=== PATIENT | male | born 1935 | race Caucasian/White ===

== ENCOUNTER 2018-04-24 10:53 | Day surgery (SDC) | payer OTHER ==
[2018-04-21 10:09] LABS: Absolute Monocytes 0.6 K/uL (0.1-1.3); Absolute Neutrophil 2.9 K/uL (1.8-8.0); Basophils % 1.2 % (0-1.3); Eosinophils % 9.4 % (0-4.4); Hematocrit 35.4 % (39.6-49.0); Lymphocytes % 32.5 % (15.3-44.8); MCV 95.3 fL (80-100); MPV 9.1 fL (7.6-11.3); RBC Red Blood Cell Count 3.71 M/uL (4.33-5.43)
--- OUTSIDE RECORDS SUMMARY | 2018-04-24 10:55 | XMS REPORT ---
:1935 [facility] [address] [place] [address] Care Team Providers Name Role Phone STORMY SALAZAR Primary Care Provider Unavailable STORMY SALAZAR Unavailable Unavailable Problems This patient has no known problems. Allergies, Adverse Reactions, Alerts This patient has no known allergies or adverse reactions. Medications This patient has no known medications. Encounters Start End Encounter Admission Attending Care Care Encounter Date/Time Date/Time Type Type Clinicians Facility Department ID 2017-06-10 2017-06-10 Outpatient [facility] [id number] 20:31:00 20:31:00 TSORMY Results Test Description Test Time Test Comments Text Results Atomic Results Result Comments Comprehensive Metabolic Panel 2017-06-10 21:21:00 Test Item Value Reference Range Comments Sodium (test code=NA) 136 mmol/L 135-145 Potassium (test code=K) 4.9 mmol/L 3.5-5.1 Chloride (test code=CL) 102 mmol/L 98-105 Carbon Dioxide (test 23 mmol/L 22-29 code=CO2) Glucose (test code=GLU) 98 mg/dL 70-115 Blood Urea Nitrogen (test 32 mg/dL 8-23 code=BUN) Creatinine (test code=CREAT) 1.7 mg/dL 0.7-1.2 Calcium (test code=CA) 9.0 mg/dL 8.3-10.5 Prot Total (test code=TP) 7.5 g/dL 6.4-8.3 Albumin (test code=ALB) 4.4 g/dL 3.5-5.2 A/G Ratio (test 1.4 Ratio code=AGRATIO) Globulin (test code=GLOB) 3.1 2.9-3.1 Bili Total (test code=TBIL) 0.3 mg/dL 0.1-0.9 Alk Phos (test code=APHOS) 63 U/L 40-129 AST (test code=AST) 14 U/L 1-40 ALT (test code=ALT) 14 U/L 1-41 BUN/Creatinine Ratio (test 18.8 code=BCRATIO) Anion Gap (test code=AGAP) 11 mmol/L 7-16 Estimated GFR (test 42 mL/min/1.73m2 eGFR (estimated Glomerular code=GFR) Filtration Rate) is an estimated value,calculated from the patient's serum creatinine using the MDRD equation.It is NOT the patient's actual GFR. The eGFR provides a more clinicallyuseful measure of kidney disease than serum creatinine alone.This calculation takes sex and race into account, if the informationis provided. If the race is not provided, and the patient isAfrican-[place], multiply by 1.212. If sex is not provided, and thepatient is female, multiply by 0.742. Results for patients <18 years ofage have not been validated by the MDRD study and should be interpretedwith caution.eGFR Result Interpretation:eGFR > or=60 is in the Normal RangeeGFR < 60 may mean kidney diseaseeGFR < 15 may mean kidney failureRanges recommended by the National Kidney Foundation,http://nkdep.nih.gov [id number] 21:21:00 Test Item Value Reference Range Comments NT ProBnp (test code=PBNP) 467 pg/mL 0-449 Lipid [id number] 21:21:00 Test Item Value Reference Range Comments Cholesterol (test 165 mg/dL 0-200 code=CHOL) Triglycerides (test 174 mg/dL 9-200 code=TRIG) HDL (test code=HDL) 37 mg/dL 40-60 Chol/HDL (test 4.5 Ratio 0.0-5.0 code=CHOLPHDL) LDL, Calculated (test 93 0-130 (NOTE)RISK OF HEART code=LDLC) DISEASEPublished by [place] Heart AssociationAnalyte Optimal Boderline Increased RiskCHOL <200 200-239 >240TRIG <150 150-199 >200HDL Male: >60 <40HDL Female: >60 <50LDL <100 130-159 >160LDL NEAR OPTIMAL IS 100-129 VLDL (test code=VLDL) 35 mg/dL 5-40 LDL/HDL (test code=LDLPHDL) 3 CBC with [id number] 21:03:00 Test Item Value Reference Range Comments WBC (test code=WBC) 6.7 K/cumm 4.4-10.5 RBC (test code=RBC) 3.50 M/cumm 4.10-5.70 Hemoglobin (test code=HGB) 11.1 gm/dL 13.4-17.4 Hematocrit (test code=HCT) 32.9 % 38.7-52.0 MCV (test code=MCV) 93.8 fL 80-100 MCH (test code=MCH) 31.6 pg 27.0-32.5 MCHC (test code=MCHC) 33.6 g/dL 32.0-37.5 RDW (test code=RDW) 13.7 % 11.5-14.5 Platelet Count (test code=PLTCT) 238 K/cumm 140-440 MPV (test code=MPV) 12.1 fL Diff Method (test code=DIFFM) Auto Neutrophil (test code=NEUT) 57.1 % 36-70 Lymphocyte (test code=LYMPH) 27.4 % 12-44 Monocyte (test code=MONO) 7.4 % 0-11 Eosinophil (test code=EOS) 7.2 % 0-7 Basophil (test code=BASO) 1.1 % 0-2 Neutro Abs (test code=ANEUT) 3.9 K/cumm 1.6-7.4 Lymph Abs (test code=ALYMPH) 1.8 K/cumm 0.5-4.6 Craven Abs (test code=AMONO) 0.5 K/cumm 0.0-1.2 Eos Abs (test code=AEOS) 0.48 K/cumm 0.00-0.74 Baso Abs (test code=ABASO) 0.1 K/cumm 0.00-0.21
[2018-04-24] MEDS ORDERED: NA CHLORIDE 0.9% 500 ML ONE (11:17)
[2018-04-24] MEDS: CYCLOPENTOLATE 1% OPTH 2 ML ONE ×3 (11:24→11:35)
[2018-04-24] MEDS: PHENYLEPHRINE 10% OPTH 5ML ONE ×3 (11:24→11:35)
[2018-04-24] MEDS ORDERED: FENTANYL CITR 100 MCG/2 ML ONE (12:26)
[2018-04-24] MEDS ORDERED: PROPOFOL 200 MG/20 ML VIAL IV ONE (12:27)
[2018-04-24] MEDS ORDERED: LIDOCAINE 2% MPF 5 ML VIAL ONE (12:27)
[2018-04-24] MEDS ORDERED: EPINEPHRINE/PF 1 MG/ML AMP ONE (12:42)
[2018-04-24] MEDS ORDERED: BALANCED SALT IRRIG PLAIN 500 ML BTL IRR ONE (12:42)
[2018-04-24] MEDS ORDERED: NS 0.9% VIAL 10 ML ONE (12:42)
[2018-04-24] MEDS ORDERED: MOXIFLOXACIN HCL 10 DROPS/ML **OR USE OPTH ONE (12:43)
[2018-04-24] MEDS ORDERED: DUOVISC 1 KIT OPTH ONE (12:43)
[2018-04-24] MEDS ORDERED: GLYCOPYRROLATE 0.2 MG/ML SYR ONE (13:10)
[2018-04-24] MEDS ORDERED: EPHEDRINE SULF 50 MG/10 ML SYR ONE (13:11)
--- NOTE | 2018-04-24 13:25 | P.BOP ---
Preoperative diagnosis: Nuclear sclerotic cataract OS Postoperative diagnosis: Same Primary procedure: Phacoemulsification OS Estimated blood loss: None Anesthesia: General Complications: None Implants: ZCB00 +22.5 Transferred to: Recovery Room Condition: Good
--- NOTE | 2018-04-25 00:34 | OP ---
Date of Procedure: 04/24/2018 Surgeon: Jennifer Levin MD Anesthesiologist: Melissa Emery CRNA and Mike To MD. Preoperative Diagnosis: Nuclear sclerotic cataract, left eye. Operation Performed: Phacoemulsification with intraocular lens implant, left eye. Anesthesia: General anesthesia. Complications: None. Description Of Procedure: In the operating room the patient was prepped and draped in the usual ster ile fashion for ophthalmic surgery. A lid speculum was placed in the left eye. Two paracentesis sit es were made superiorly and inferiorly in the limbal cornea. Viscoat was placed in the anterior anjali ruben and a crescent blade was used to make a corneal groove and tunnel, and a keratome was used to ent er the anterior chamber. Provisc was placed in the anterior chamber and a 360 degree capsulotomy was performed with a cystitome. The lens was hydrodissected with BSS and rotated freely. The lens was removed with a stop and chop technique. A 9.81 phaco CDE was used to remove the lens. Residual deepa ex was removed with the irrigation and aspiration. Provisc was placed in the capsular bag. A ZCB00 +22.5 lens was placed in the capsular bag without complications. Irrigation and aspiration were used to remove residual viscoelastic. The paracentesis sites were hydrated with BSS. The wound and para centesis sites were inspected and found to be watertight. Vigamox 0.07 cc was placed intracamerally at the end of the procedure. The eye was irrigated with balanced salt solution. The eye was patched with a soft cotton patch and Abreu metal shield. The patient was returned to day surgery in good condition. Comments: Discharge Instructions: Mr. Duran is discharged to home in good condition. He is to follow up [facility] Dr. Levin in the morning. JOSAFAT/MODL Voice ID: [id number] Report ID: [id number]
== END 2018-04-24 14:40 | disposition home or self-care (01) ==
LOC: OR 10:53
PROVIDERS: ATTEND Ophthalmology Retina Specialist
PROC: 08RK3JZ Replacement of Left Lens with Synthetic Substitute, Percutaneous Approach (ICD-10-PCS; principal; 2018-04-24 11:00)
DX: H25.12 Age-related nuclear cataract, left eye (principal); I10 Essential (primary) hypertension; E78.00 Pure hypercholesterolemia, unspecified; M19.90 Unspecified osteoarthritis, unspecified site; Z88.0 Allergy status to penicillin; Z80.9 Family history of malignant neoplasm, unspecified; Z82.49 Family history of ischemic heart disease and other diseases of the circulatory system
CPT/HCPCS: 36415; 66984; 80048; 85025; J0171; J2704; J3010